=== PATIENT | male | born 2000 | race Two or more races ===

== ENCOUNTER 2021-10-31 00:26 | Emergency (ER) | payer SELFPAY ==
[~2021-10-31] VITALS: Ht 182.9 cm; Wt 68.0 kg
[2021-10-31 01:40] LABS: COVID AG,FIA SOURCE NASAL SWAB
[2021-10-31 02:00] LABS: INFLUENZA TYPE A NEGATIVE FOR TYPE A (NEGATIVE); INFLUENZA TYPE B NEGATIVE FOR TYPE B (NEGATIVE)
[2021-10-31] MEDS ORDERED: AMOX1TAB16 PO (02:14)
[2021-10-31] MEDS ORDERED: KETOROLAC TROMETHAMINE 30 MG/ML VIAL IM ONE (02:15)
[2021-10-31 02:22] VITALS: BP 119/75
== END 2021-10-31 02:23 | disposition home or self-care (01) ==
LOC: EMS 00:29
DX: H92.03 Otalgia, bilateral (principal); Z20.822 Contact with and (suspected) exposure to COVID-19
CPT/HCPCS: 99283; 87426; 87804; 96372; J1885